=== PATIENT | male | born 1990 | race Caucasian/White ===

== ENCOUNTER 2017-06-23 22:21 | Emergency (ER) | payer SELFPAY ==
[~2017-06-23] VITALS: Ht 182.9 cm; Wt 70.0 kg
[2017-06-23 22:24] VITALS: BP 154/98; PULSE 100; RESP 16; TEMP 98.2; O2SAT 99
--- NOTE | 2017-06-24 01:02 | PD ---
HPI Chief Complaint: Psychiatric Symptoms Time Seen by Provider: 01:00 Travel History International Travel<30 days: No Contact w/Intl Traveler<30days: No Traveled to known affect area: No History of Present Illness HPI 26-year-old male requesting psychiatric evaluation. Patient has long-standing history of depression and suicidal. Patient has not seen a psychiatrist recently. Patient states that he is has been drinking alcohol daily. Patient denies any history of DVT. Patient denies any illicit drug abuse. Patient denies any past medical history. Patient is not on any routine medication. PFSH Past Medical History Asthma: Yes Bipolar Disorder: Yes Anxiety: Yes Depression: Yes Diminished Hearing: No Psychiatric: Yes Immunizations Current: Yes Schizophrenia: Yes Past Surgical History Surgical History: No Previous Surgery Social History Alcohol Use: Yes (NORMALY SOCIALY) Tobacco Use: Yes (1 PPD) Substance Use: Yes (MARIJUANA) Allergies-Medications (Allergen,Severity, Reaction): Coded Allergies: bupropion (Unverified Allergy, Unknown, 06/23/17) Reported Meds & Prescriptions Reported Meds & Active Scripts Active No Active Prescriptions or Reported Medications Review of Systems General / Constitutional: No: Fever Eyes: No: Visual changes HENT: No: Headaches Cardiovascular: No: Chest Pain or Discomfort Respiratory: No: Shortness of Breath Gastrointestinal: No: Abdominal Pain Genitourinary: No: Dysuria Musculoskeletal: No: Pain Skin: No Rash Neurologic: No: Weakness Psychiatric: No: Depression Endocrine: No: Polydipsia Hematologic/Lymphatic: No: Easy Bruising Physical Exam Narrative GENERAL: Well-nourished, well-developed patient. SKIN: Focused skin assessment warm/dry. HEAD: Normocephalic. EYES: No scleral icterus. No injection or drainage. NECK: Supple, trachea midline. No JVD or lymphadenopathy. CARDIOVASCULAR: Regular rate and rhythm without murmurs, gallops, or rubs. RESPIRATORY: Breath sounds equal bilaterally. No accessory muscle use. GASTROINTESTINAL: Abdomen soft, non-tender, nondistended. MUSCULOSKELETAL: No cyanosis, or edema. BACK: Nontender without obvious deformity. No CVA tenderness. Neurologic exam normal. Data Data Last Documented VS Vital Signs Date Time Temp Pulse Resp B/P (MAP) Pulse Ox O2 Delivery O2 Flow Rate FiO2 06/23/17 23:41 20 06/23/17 22:24 98.2 100 154/98 (116) 99 Orders Orders Complete Blood Count With Diff (06/24/17 01:00) Comprehensive Metabolic Panel (06/24/17 01:00) Psych Screen (06/24/17 01:00) Drug Screen, Random Urine (06/24/17 01:00) Alcohol (Ethanol) (06/24/17 01:00) MDM Medical Decision Making Medical Screen Exam Complete: Yes Emergency Medical Condition: Yes Differential Diagnosis Differential diagnosis including depression, suicidal, adjustment disorder. Narrative Course 26-year-old male was depression and suicidal. Requesting psychiatric evaluation. Scripts No Active Prescriptions or Reported Meds Seven Warren MD Jun 24, 2017 01:02
[2017-06-24 01:55] LABS: AUTOMATED NEUTROPHIL # 5.2 TH/MM3 (1.8-7.7); BASOPHIL # 0.1 TH/MM3 (0-0.2); BASOPHIL % 0.8 % (0.0-2.0); EOSINOPHIL % 0.6 % (0.0-4.0); HEMO FLAGS DIFF FINAL; LYMPH % 21.3 % (9.0-44.0); LYMPHOCYTE # 1.6 TH/MM3 (1.0-4.8); MEAN CORPUSCULAR HEMOGLOBIN 32.7 PG (27.0-34.0); MEAN CORPUSCULAR HGB CONC 34.7 % (32.0-36.0); MONO % 8.6 % (0.0-8.0); NEUT % 68.7 % (16.0-70.0); PLATELET COUNT 145 TH/MM3 (150-450); RED BLOOD COUNT 5.32 MIL/MM3 (4.50-5.90); RED CELL DISTRIBUTION WIDTH 12.5 % (11.6-17.2); WHITE BLOOD COUNT 7.5 TH/MM3 (4.0-11.0)
[2017-06-24 02:02] LABS: ALT (GPT) 27 U/L (12-78); ANION GAP 14 MEQ/L (5-15); AST (GOT) 28 U/L (15-37); BICARBONATE 23.9 MEQ/L (21.0-32.0); BLOOD UREA NITROGEN 8 MG/DL (7-18); CHLORIDE 98 MEQ/L (98-107); GLOMERULAR FILTRATION RATE 107 ML/MIN (>89); POTASSIUM 3.5 MEQ/L (3.5-5.1); SODIUM (NA) 136 MEQ/L (136-145)
[2017-06-24 02:05] LABS: ALKALINE PHOSPHATASE 88 U/L (45-117); TOTAL BILIRUBIN ADULT 1.1 MG/DL (0.2-1.0)
[2017-06-24 02:13] LABS: ALCOHOL LESS THAN 3 MG/DL (0-5)
--- NOTE | 2017-06-24 03:49 | PD ---
Physical Exam Narrative I was asked to discharge patient after patient was evaluated by psych screen and given outpatient resources packet. Patient was previously medically cleared by previous provider. Please see their documentation for full H&P. Patient denies any homicidal or suicidal ideations. Denies any medical concerns at this time. Patient's significant other in the room patient's wound be discharged home for outpatient follow-up. Data Data Last Documented VS Vital Signs Date Time Temp Pulse Resp B/P (MAP) Pulse Ox O2 Delivery O2 Flow Rate FiO2 06/23/17 23:41 20 06/23/17 22:24 98.2 100 154/98 (116) 99 Orders Orders Complete Blood Count With Diff (06/24/17 01:00) Comprehensive Metabolic Panel (06/24/17 01:00) Psych Screen (06/24/17 01:00) Drug Screen, Random Urine (06/24/17 01:00) Alcohol (Ethanol) (06/24/17 01:00) Ed Discharge Order (06/24/17 03:51) Labs Laboratory Tests Test 06/24/17 01:25 06/24/17 01:30 Urine Opiates Screen NEG Urine Barbiturates Screen NEG Urine Amphetamines Screen NEG Urine Benzodiazepines Screen NEG Urine Cocaine Screen NEG Urine Cannabinoids Screen POS White Blood Count 7.5 TH/MM3 Red Blood Count 5.32 MIL/MM3 Hemoglobin 17.4 GM/DL Hematocrit 50.0 % Mean Corpuscular Volume 94.0 FL Mean Corpuscular Hemoglobin 32.7 PG Mean Corpuscular Hemoglobin Concent 34.7 % Red Cell Distribution Width 12.5 % Platelet Count 145 TH/MM3 Mean Platelet Volume 9.0 FL Neutrophils (%) (Auto) 68.7 % Lymphocytes (%) (Auto) 21.3 % Monocytes (%) (Auto) 8.6 % Eosinophils (%) (Auto) 0.6 % Basophils (%) (Auto) 0.8 % Neutrophils # (Auto) 5.2 TH/MM3 Lymphocytes # (Auto) 1.6 TH/MM3 Monocytes # (Auto) 0.6 TH/MM3 Eosinophils # (Auto) 0.0 TH/MM3 Basophils # (Auto) 0.1 TH/MM3 CBC Comment DIFF FINAL Differential Comment Blood Urea Nitrogen 8 MG/DL Creatinine 0.85 MG/DL Random Glucose 79 MG/DL Total Protein 8.3 GM/DL Albumin 4.3 GM/DL Calcium Level 9.5 MG/DL Alkaline Phosphatase 88 U/L Aspartate Amino Transf (AST/SGOT) 28 U/L Alanine Aminotransferase (ALT/SGPT) 27 U/L Total Bilirubin 1.1 MG/DL Sodium Level 136 MEQ/L Potassium Level 3.5 MEQ/L Chloride Level 98 MEQ/L Carbon Dioxide Level 23.9 MEQ/L Anion Gap 14 MEQ/L Estimat Glomerular Filtration Rate 107 ML/MIN Ethyl Alcohol Level LESS THAN 3 MG/DL MDM Supervised Visit with JANETH: No Narrative Course Patient in no obvious distress upon re-evaluation. Any questions/concerns in reference to patient diagnosis/condition discussed and clarified prior to patient's discharge. Reinforced sheer importance of close follow up with patient 's primary physician or primary care clinic and/or with one of the resources he was given today. Instructed patient to return to ED immediately, if symptoms return/worsen. Patient showed understanding of above instructions. Further instructions and recommendations were detailed in discharge paperwork. Patient ambulated without difficulty out of ED at discharge. Diagnosis Primary Impression: Depressed Qualified Codes: F32.9 - Major depressive disorder, single episode, unspecified Referrals: [facility] Instructions: General Instructions Additional Instruction: Follow-up with your primary care physician or one of the resources that you were given today as soon as possible for further evaluation. Return to the emergency department if symptoms get worse. Scripts No Active Prescriptions or Reported Meds Disposition: 01 DISCHARGE HOME Condition: Stable Chase Herdeia Jun 24, 2017 03:49
== END 2017-06-24 05:11 | disposition home or self-care (01) ==
LOC: NEPD 22:21
DX: F32.9 Major depressive disorder, single episode, unspecified (principal); R45.851 Suicidal ideations; F31.9 Bipolar disorder, unspecified; F41.9 Anxiety disorder, unspecified; F20.9 Schizophrenia, unspecified; J45.909 Unspecified asthma, uncomplicated; F17.200 Nicotine dependence, unspecified, uncomplicated
CPT/HCPCS: 80053; 80307; 85025; 99284